=== PATIENT | female | born 1965 | race Caucasian/White ===

== ENCOUNTER 2017-10-03 18:20 | Emergency (ER) | payer OTHER ==
[~2017-10-03] VITALS: Ht 170.2 cm; Wt 77.3 kg
[2017-10-03 19:45] LABS: BASOPHIL COUNT 0.1 K/uL (0-0.1); EOSINOPHIL (%) 3.8 % (0-5); EOSINOPHIL COUNT 0.4 K/uL (0-0.3); HEMATOCRIT 40.3 % (36.0-46.0); HEMOGLOBIN 13.5 G/DL (11.9-15.5); IMMATURE GRANULOCYTE (%) 0.3 % (0.0-0.7); LYMPHOCYTE COUNT 2.7 K/uL (1.0-2.8); MCHC 33.5 G/DL (30.0-36.0); MCV 92.4 FL (83-99); MONOCYTE (%) 6.9 % (3-12); MONOCYTE COUNT 0.7 K/uL (0-0.8); NEUTROPHIL COUNT 5.6 K/uL (1.8-6.4); PLATELET COUNT 315 K/uL (156-360); RBC DIS.WIDTH-CV 13.2 % (11.8-14.6); RBC DIS.WIDTH-SD 45.1 % (39-53); RED BLOOD COUNT 4.36 M/uL (3.80-5.20); WHITE BLOOD COUNT 9.5 K/uL (4.1-10.2)
[2017-10-03 19:48] LABS: APPEARANCE CLEAR ((CLEAR)); BILIRUBIN NEGATIVE; BLOOD MODERATE; COLOR STRAW ((YELLOW)); GLUCOSE (STRIP) NEGATIVE; KETONES NEGATIVE; LEUKOCYTES MODERATE; NITRITE NEGATIVE; PROTEIN (STRIP) NEGATIVE; SPECIFIC GRAVITY 1.005 (1.000-1.030); UROBILINOGEN 0.2 MG/DL (0.2-1.0)
[2017-10-03 19:54] LABS: BACTERIA RARE /HPF; EPITHELIAL CELLS RARE /HPF; MUCUS TRACE /LPF; RED BLOOD CELLS 0-5 /HPF (0-5); UCUL ADDED? NO; WHITE BLOOD CELLS 0-5 /HPF (0-5)
[2017-10-03 19:55] LABS: PTT 29.4 SEC (25-37)
[2017-10-03 20:22] LABS: ALBUMIN 4.5 g/dL (3.2-4.8); CHLORIDE 104 mEq/L (99-109); POTASSIUM 3.9 mEq/L (3.7-5.4); SODIUM 138 mEq/L (136-147)
[2017-10-03 20:23] LABS: MAGNESIUM 2.2 mg/dL (1.3-2.7)
[2017-10-03 20:25] LABS: GLUCOSE 72 mg/dL (70-99); TOTAL PROTEIN 7.6 g/dL (6.4-8.3)
[2017-10-03 20:26] LABS: TOTAL BILIRUBIN 0.7 mg/dL (0.0-1.0)
[2017-10-03 20:28] LABS: ALKALINE PHOSPHATASE 58 IU/L (3-129); CREATININE 0.7 mg/dL (0.6-1.3); GFR ESTIMATE (CALCULATED) > 59 mL/min/
[2017-10-03 20:29] LABS: UREA NITROGEN (BUN) 12 mg/dL (9-23)
[2017-10-03 20:30] LABS: AST (GOT) 26 IU/L (2-34)
[2017-10-03 20:31] LABS: ALT (GPT) 23 IU/L (3-49)
[2017-10-03 20:32] LABS: LIPASE 17 U/L (1.0-51.0)
[2017-10-03] MEDS ORDERED: PRINIVIL10 MG PO (20:33)
[2017-10-03] MEDS ORDERED: CYMBALTA30 MG PO (20:35)
[2017-10-03] MEDS ORDERED: HYDROCHLOROTHIA25 MG PO (20:35)
[2017-10-03] MEDS ORDERED: XIFAXAN550 MG PO (20:36)
[2017-10-03 20:38] LABS: QUANTITATIVE HCG < 4.0 MIU/ML
[2017-10-04] MEDS ORDERED: PERCOCET 5/31 TABLET PO (00:31)
[2017-10-04] MEDS ORDERED: ZANTAC150 MG PO (00:34)
[2017-10-04 00:47] VITALS: BP 128/91
== END 2017-10-04 00:50 | disposition home or self-care (01) ==
LOC: EME 18:20
PROVIDERS: Emergency Medicine
DX: R10.11 Right upper quadrant pain (principal); R10.12 Left upper quadrant pain; K82.4 Cholesterolosis of gallbladder
CPT/HCPCS: 76705; 80053; 81003; 83690; 83735; 84702; 85025; 85610; 85730; 93005; 99281; 99285; J2270